=== PATIENT | female | born 1995 | race Caucasian/White ===

== ENCOUNTER 2024-04-14 16:41 | Emergency (ER) | payer OTHER, SELFPAY ==
--- NOTE | 2024-04-14 16:43 | ED.URI ---
HPI - URI/Sore Throat General Chief Complaint: Unspecified Stated Complaint: Sore Throat/Sore Breast Time Seen by Provider: 04/14/24 16:43 Source: patient Mode of arrival: ambulatory Limitations: no limitations History of Present Illness HPI Narrative: Kaila is a 28-year-old female patient presenting to the clinic today with complaints of sore throat that started yesterday. She also reports she has some redness, swelling, pain to the left breast. She is 2 weeks and is breast feeding/pumping. She reports on Tuesday she developed the discomfort in the left breast and had some chills. She denies any known fever. Is only able to get about 1 oz out of the left breast when compared to the right breast she is getting 2 oz. Was previously getting 2 oz out of both breast when she pumps. Pumping is very painful. MD elicited complaint: sore throat and other (mastitis) Related Data Home Medications Medication Instructions Recorded Confirmed ibuprofen 600 mg tablet mg 04/14/24 polysaccharide iron complex 150 mg mg 04/14/24 iron capsule Allergies Allergy/AdvReac Type Severity Reaction Status Date / Time amoxicillin Allergy Rash Verified 04/14/24 17:12 Review of Systems Review of Systems: Pertinent positives per HPI. Patient denies any fever, chills, rash, headache, visual changes, dizziness, cough, shortness of breath, chest pain, palpitations, nausea, vomiting, diarrhea, constipation, abdominal pain, or any urinary issues. PMFSH Comments At the time of my signature, I reviewed and agree with the nursing past medical, surgical, social, and family history. There is no relevant family history pertinent to the patient complaint. Exam Narrative: General: Well-developed, well nourished, in no apparent distress Head: Normocephalic, atraumatic Eyes: Pupils equally round and reactive to light bilaterally, EOM intact, sclera and conjunctive clear, no discharge, lids normal Ears: TMs intact and clear, ear canals clear, no drainage, grossly hearing normal. Nose: Nares patent, clear nasal discharge, no inflammation, no sinus tenderness. Mouth: Oral pharynx without lesions or masses, good dentition, MMM. Neck: Supple, trachea midline, no enlargement of anterior or posterior cervical nodes, no thyroid masses or goiter palpable. Breast: Redness and swelling noted to the medial left breast with localized cellulitis without palpable abscess, tenderness to palpation over this area, some redness extending to the lateral aspect of the left breast with palpable lymph node swelling in the left axilla. Cardio: Regular rate and rhythm, s1 and s2 normal, no murmur appreciated. Resp: Clear to auscultation bilaterally, no rhonchi, rales, wheezing or rubs Course Course Emergency Course: Portions of this record may have been created with voice recognition software. Level of Care: Express Care Visit Vital Signs Vital signs: Vital Signs Temperature 36.9 C 04/14/24 16:48 Pulse Rate 93 04/14/24 16:48 Respiratory Rate 16 04/14/24 16:48 Blood Pressure 132/94 H 04/14/24 16:48 Pulse Oximetry 100 04/14/24 16:48 Temperature 36.9 C 04/14/24 16:48 Pulse Rate 93 04/14/24 16:48 Respiratory Rate 16 04/14/24 16:48 Blood Pressure 132/94 H 04/14/24 16:48 Pulse Oximetry 100 04/14/24 16:48 Vital signs reviewed MDM - URI/Sore Throat MDM Narrative Medical decision making narrative: At the time of visit patient is resting comfortably on the exam table. Patient appears to be nontoxic. Labs: Strep test was negative in the clinic today. We will send for culture. Plan: I suspect patient has pharyngitis with left breast mastitis. Prescription for cephalexin was sent to the pharmacy. Patient has had allergy to penicillin when she was a child-had a rash at that time. States that she thinks she may have had cefdinir or cephalexin before the past without any reaction however she is not sure
[2024-04-14 16:48] VITALS: BP 132/94; PULSE 93; RESP 16; TEMP 36.9; O2SAT 100
== END 2024-04-14 17:31 | disposition home or self-care (01) ==
PROVIDERS: Emergency Provider Nurse Practitioner Family
DX: J02.9 Acute pharyngitis, unspecified (principal); N61.1 Abscess of the breast and nipple
CPT/HCPCS: 87081; 87880; 99213; G0463